=== PATIENT | male | born 1975 | race Caucasian/White ===

== ENCOUNTER 2017-01-27 11:22 | Emergency (ER) | payer OTHER ==
[2017-01-27 11:45] VITALS: BP 135/86
[2017-01-27] MEDS ORDERED: Sodium Chloride 0.9% 10 ML Syringe FLUSH PRN (11:55)
[2017-01-27] MEDS ORDERED: Alum Hydrox/Mag Hydrox/Simeth 30 ML, Lidocaine 2% 15 ML PO ONE ×2 (11:56)
--- NOTE | 2017-01-27 12:02 | EDM.PDOC ---
ED HPI GENERAL MEDICAL PROBLEM - General Chief Complaint: Chest Pain Stated Complaint: CHEST PAIN Time Seen by Provider: 01/27/17 11:56 Source of Information: Reports: Patient History Limitations: Reports: No Limitations - History of Present Illness INITIAL COMMENTS - FREE TEXT/NARRATIVE: Patient is a 41-year-old male who presents to the ED complaining of substernal chest discomfort. States it started this morning upon awakening. Described the pain as a pressure sensation rated a 3/10 with admission to the E.D. States he did become mildly short of breath with onset and broke out in a sweat as well. Pain is worsened with activity, palpation, movement of his left upper extremity. Patient states he's been under a lot of stress recently at work. Notes history of of hypertension and hypercholesterolemia to which he is medicated. In addition has a history of acid reflux and has taken omeprazole. Denies a recent exacerbation of his acid reflux. Denies pre-/syncopal episodes, nausea/vomiting, dizziness, pain to his back, pain to his left shoulder, left upper extremity, or any additional complaints. He is no history of previous episodes of such. He has no family history of first degree relative with heart disease.Patient does smoke 1-2 cigarettes daily. Duration: Constant, Waxing/Waning Location: Reports: Chest Quality: Reports: Ache, Pressure, Sharp Severity: Mild Improves with: Reports: Other (pushing on the chest) Worsens with: Reports: Other (ambulation) Context: Denies: Activity, Exercise, Lifting, Sick Contact Associated Symptoms: Reports: Chest Pain, Diaphoresis, Shortness of Breath ( with chest pain). 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 0.5 tab PO DAILY 01/27/17 [History] FLUoxetine [PROzac] 10 mg PO DAILY 01/27/17 [History] Lisinopril 10 mg PO DAILY 01/27/17 [History] Omeprazole 20 mg PO DAILY 01/27/17 [History] Past Medical History Cardiovascular History: Reports: High Cholesterol, Hypertension Psychiatric History: Reports: Anxiety - Infectious Disease History Infectious Disease History: Reports: Chicken Pox Social & Family History - Tobacco Use Smoking Status *Q: Current Every Day Smoker Years of Tobacco use: 15 Packs/Tins Daily: 0.4 - Caffeine Use Caffeine Use: Reports: Soda - Recreational Drug Use Recreational Drug Use: No ED ROS GENERAL - Review of Systems Review Of Systems: See Below Constitutional: Reports: No Symptoms Respiratory: Reports: Shortness of Breath. Denies: Cough, Sputum Cardiovascular: Reports: Chest Pain, Dyspnea on Exertion. Denies: Lightheadedness, Palpitations, Syncope GI/Abdominal: Denies: Abdominal Pain, Diarrhea, Nausea, Vomiting Musculoskeletal: Denies: Neck Pain, Shoulder Pain, Back Pain Neurological: Denies: Dizziness, Headache, Numbness, Syncope, Tingling, Difficulty Walking ED EXAM, GENERAL - Physical Exam Exam: See Below Exam Limited By: No Limitations General Appearance: Alert, WD/WN, No Apparent Distress Ears: Hearing Grossly Normal Nose: Normal Inspection Throat/Mouth: Normal Inspection, Normal Voice, No Airway Compromise Neck: Normal Inspection, Supple Respiratory/Chest: No Respiratory Distress, Lungs Clear, Normal Breath Sounds, No Accessory Muscle Use Cardiovascular: Normal Peripheral Pulses, Regular Rate, Rhythm, No Murmur Peripheral Pulses: 2+: Radial (L) GI/Abdominal: Normal Bowel Sounds, Soft, Non-Tender, No Organomegaly, No Distention Back Exam: Normal Inspection Extremities: Normal Inspection, Non-Tender, No Pedal Edema, Normal Capillary Refill Neurological: Alert, Oriented, CN II-XII Intact, Normal Cognition Psychiatric: Normal Affect, Normal Mood Skin Exam: Warm, Dry, Intact, Normal Color Course - Vital Signs Last Recorded V/S: Last Vital Signs Temp 98.7 F 01/27/17 11:42 Pulse 67 01/27/17 11:42 Resp 18 01/27/17 11:42 BP 135/86 01/27/17 11:42 Pulse Ox 97 01/27/17 11:42 - Orders/Labs/Meds Orders: Active Orders 24 hr Category Date Time Status EKG Documentation Completion [RC] STAT Care 01/27/17 11:51 Active Peripheral IV Care [RC] . DIRECTED Care 01/27/17 11:55 Active Peripheral IV Insertion Adult [OM.PC] Routine Oth 01/27/17 11:55 Ordered Labs: Laboratory Tests 01/27/17 01/27/17 01/27/17 Range/Units 11:40 11:40 11:40 WBC 8.16 (4.23-9.07) K/mm3 RBC 4.93 (4.63-6.08) M/mm3 Hgb 14.9 (13.7-17.5) gm/L Hct 42.3 (40.1-51.0) % MCV 85.8 (79.0-92.2) fl MCH 30.2 (25.7-32.2) pg MCHC 35.2 (32.2-35.5) g/dl RDW Std Deviation 40.5 (35.1-43.9) fL Plt Count 294 (163-337) K/mm3 MPV 9.8 (9.4-12.3) fl Neut % (Auto) 68.6 H (34.0-67.9) % Lymph % (Auto) 20.3 L (21.8-53.1) % [place] % (Auto) 8.7 (5.3-12.2) % Eos % (Auto) 1.8 (0.8-7.0) Baso % (Auto) 0.2 (0.1-1.2) % Neut # (Auto) 5.59 H (1.78-5.38) K/mm3 Lymph # (Auto) 1.66 (1.32-3.57) K/mm3 [place] # (Auto) 0.71 (0.30-0.82) K/mm3 Eos # (Auto) 0.15 (0.04-0.54) K/mm3 Baso # (Auto) 0.02 (0.01-0.08) K/mm3 PT 9.5 (8.0-13.0) SECONDS INR 0.88 APTT 28 (22-36) SECONDS Sodium 142 (136-145) mEq/L Potassium 3.6 (3.5-5.1) mEq/L Chloride 106 (98-107) mEq/L Carbon Dioxide 24 (21-32) mEq/L Anion Gap 15.6 H (5-15) BUN 10 (7-18) mg/dL Creatinine 1.2 (0.7-1.3) mg/dL Est Cr Clr Drug Dosing 73.10 mL/min Estimated GFR (MDRD) > 60 (>60) mL/min BUN/Creatinine Ratio 8.3 L (14-18) Glucose 110 H (74-106) mg/dL Calcium 9.0 (8.5-10.1) mg/dL Total Bilirubin 0.5 (0.2-1.0) mg/dL AST 27 (15-37) U/L ALT 57 (16-63) U/L Alkaline Phosphatase 77 (46-116) U/L Troponin I < 0.017 (0.00-0.056) ng/mL C-Reactive Protein < 0.2 (<1.0) mg/dL Total Protein 7.2 (6.4-8.2) g/dl Albumin 3.7 (3.4-5.0) g/dl Globulin 3.5 gm/dL Albumin/Globulin Ratio 1.1 (1-2) TSH 3rd Generation 0.992 (0.358-3.74) uIU/mL Meds: Medications Discontinued Medications Generic Name Dose Route Start Last Admin Trade Name Freq PRN Reason Stop Dose Admin Al Hydroxide/Mg Hydroxide 30 0 ml 01/27/17 11:56 01/27/17 12:14 ml/ Lidocaine HCl 15 ml PO 01/27/17 11:57 45 ml ONETIME ONE Administration Sodium Chloride 10 ml 01/27/17 11:55 01/27/17 12:14 Saline Flush FLUSH 10 ml ASDIRECTED PRN Administration Keep Vein Open - Re-Assessments/Exams Free Text/Narrative Re-Assessment/Exam: EKG reviewed sinus rhythm at a rate of 61, ID interval 152, QTC 4:15, the acute ST changes noted. For a peripheral IV with aspirin 324 mg p.o. and GI cocktail. Initial lab studies include CBC, chem 14, therapy, TSH, PT/INR, PTT, CXR, and Troponin. PERC Rule NEGATIVE. 01/27/17 13:12 Labs reviewed: CBC essentially normal, chem 14 essentially normal , troponin within normal limits, CRP within normal limits, and TSH within normal limits. 01/27/17 13:14 Per heart score patient is low risk for major cardiac event. Discussed with patient current lab results. He has opted to not have additional troponin obtained. He relates CP to stress with recent work situation. Pain is mild in nature and intermittent. Pain continues to worsen with palpation. CXR not ordered on initial evaluation. This has been ordered. 1353 Reviewed CXR. No acute abnormalities noted. Discharge instructions as documented. Departure - Departure Time of Disposition: 13:53 Disposition: Home, Self-Care 01 Condition: good Clinical Impression: Atypical chest pain Instructions: Nonspecific Chest Pain, [id number] Referrals: Lam Mcdonald MD [Primary Care Provider] - 1 Week Forms: ED Department Discharge Additional Instructions: CXR, EKG, and labs were essentially normal. Suggesting etiology of pain associated to atypical chest pain. Thus will have you take ibuprofen and tylenol in alternating patterns for pain. Refrain from activities that cause worsening pain. Followup with PCP in one week for reevaluation. Return to the E.D. for any new or worsening symptoms. - My Orders Last 24 Hours: My Active Orders 01/27/17 11:51 EKG Documentation Completion [RC] STAT 01/27/17 11:55 Peripheral IV Care [RC] . DIRECTED Peripheral IV Insertion Adult [OM.PC] Routine - Assessment/Plan Last 24 Hours: My Active Orders 01/27/17 11:51 EKG Documentation Completion [RC] STAT 01/27/17 11:55 Peripheral IV Care [RC] . DIRECTED Peripheral IV Insertion Adult [OM.PC] Routine
--- NOTE | 2017-01-27 15:15 | CR ---
Chest: Portable view of the chest was obtained. Comparison: No previous chest x-ray. Heart size and mediastinum are within normal limits for portable technique. Lungs are clear. Bony structures are grossly intact. Impression: 1. Nothing acute is identified on portable chest x-ray. Diagnostic code #1
== END 2017-01-27 14:15 | disposition home or self-care (01) ==
LOC: JD.ED 11:22
DX: R07.2 Precordial pain (principal); E78.00 Pure hypercholesterolemia, unspecified; I10 Essential (primary) hypertension; F41.9 Anxiety disorder, unspecified; F17.210 Nicotine dependence, cigarettes, uncomplicated; Z79.899 Other long term (current) drug therapy
CPT/HCPCS: 36415; 71010; 80053; 84443; 84484; 85025; 85610; 85730; 86140; 93005; 99285; A9270; J7050; 99284

== ENCOUNTER 2018-12-24 15:54 | Emergency (ER) | payer OTHER ==
[2018-12-24] MEDS ORDERED: Bupivacaine 0.5% 10 ML SDV ONE (16:04)
[2018-12-24] MEDS ORDERED: Bupivacaine 0.5% 10 ML SDV INJECT ONE (16:05)
[2018-12-24] MEDS ORDERED: Acetaminophen/oxyCODONE 325-5 MG Tab PO ONE (16:06)
[2018-12-24 16:09] VITALS: BP 173/115
[2018-12-24] MEDS ORDERED: Diphtheria,Pertussis(Acell),Tetanus Vaccine 0.5 ML Syringe IM ONE (17:27)
--- NOTE | 2018-12-24 17:27 | EDM.PDOC ---
ED HPI GENERAL MEDICAL PROBLEM - General Chief Complaint: Upper Extremity Injury/Pain Stated Complaint: L PINKY FINGER INJURY Time Seen by Provider: 12/24/18 16:05 Source of Information: Reports: Patient History Limitations: Reports: No Limitations - History of Present Illness INITIAL COMMENTS - FREE TEXT/NARRATIVE: 43 y/o old male presents to ER with cc left pinky pain. 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 He is right handed. He states the pain is worse if you touch or move his finger. Keeping his hand still makes it better, but he pain is severe. He is uncertain of his last tetanus shot. He appears to be in severe pain. He denies any neck or back pain. Onset: Today, Sudden Onset Date: 12/24/18 Onset Time: 15:30 Duration: Getting Worse Location: Reports: Upper Extremity, Left Quality: Reports: Stabbing, Throbbing Severity: Severe Improves with: Reports: None Worsens with: Reports: None Context: Reports: Trauma Associated Symptoms: Reports: No Other Symptoms Treatments TRANSITION NURSE: Reports: Acetaminophen Left Finger-Little Pain Score (Numeric/FACES): 9 - Related Data Allergies Allergy/AdvReac Type Severity Reaction Status Date / Time No Known Allergies Allergy Verified 12/24/18 16:07 Home Meds: Home Meds Cholesterol Med. 0.5 tab PO DAILY 01/27/17 [History] FLUoxetine [PROzac] 10 mg PO DAILY 01/27/17 [History] Lisinopril 10 mg PO DAILY 01/27/17 [History] Omeprazole 20 mg PO DAILY 01/27/17 [History] Cephalexin [Keflex] 500 mg PO TID 5 Days #15 capsule 12/24/18 [Rx] Hydrocodone/Acetaminophen [Cavendish 7.5-325 Tablet] 1 each PO Q6HR PRN 5 Days #15 tablet 12/24/18 [Rx] Past Medical History - Past Health History Medical/Surgical History: Denies Medical/Surgical History Cardiovascular History: Reports: High Cholesterol, Hypertension Psychiatric History: Reports: Anxiety - Infectious Disease History Infectious Disease History: Reports: Chicken Pox Social & Family History - Tobacco Use Smoking Status *Q: Current Every Day Smoker Years of Tobacco use: 20 Packs/Tins Daily: 0.1 - Caffeine Use Caffeine Use: Reports: Soda - Recreational Drug Use Recreational Drug Use: No Review of Systems - Review of Systems Review Of Systems: See Below Constitutional: Denies: Chills, Fever Eyes: Reports: No Symptoms Ears: Denies: Dizziness Nose: Reports: No Symptoms Mouth/Throat: Reports: No Symptoms Respiratory: Denies: Shortness of Breath Cardiovascular: Denies: Chest Pain GI/Abdominal: Reports: No Symptoms Genitourinary: Reports: No Symptoms Musculoskeletal: Reports: Hand Pain (left pinky pain). Denies: Neck Pain Skin: Reports: Other (left pinky laceration) Neurological: Denies: Confusion, Dizziness, Headache Psychiatric: Reports: No Symptoms ED EXAM, GENERAL - Physical Exam Exam: See Below General Appearance: Alert, WD/WN, No Apparent Distress Head: Atraumatic, Normocephalic Neck: Normal Inspection, Supple, Non-Tender, Full Range of Motion Respiratory/Chest: No Respiratory Distress, Lungs Clear, Normal Breath Sounds, No Accessory Muscle Use Cardiovascular: Normal Peripheral Pulses, Regular Rate, Rhythm, No Edema, No Gallop, No JVD, No Murmur, No Rub Extremities: Normal Range of Motion, No Pedal Edema, Other (left pinky decreased ROM due to pain, neurovascularly intact. ) Neurological: Alert, Oriented, CN II-XII Intact, Normal Cognition, Normal Reflexes Psychiatric: Normal Affect, Normal Mood Skin Exam: Warm, Dry, Normal Color, No Rash, Wound/Incision (left pinky) ED TRAUMA EXTREMITY PROCEDURES - Laceration/Wound Repair Left Upper Anterior Sides of Distal Digit - 5th (Baby) Lac/Wound Length In cm: 1.5 (irregular) Appearance: Subcutaneous, Irregular Distal NVT: Neuro & Vascular Intact, No Tendon Injury Anesthetic Type: Digital Local Anesthesia - Bupivicaine (Marcaine): 0.5% Plain Local Anesthetic Volume: 3cc Skin Prep: Chlorhexidine (Hibiciens), Providone-Iodine (Betadine) Exploration/Debridement/Repair: No Foreign Material Found Closed With: Sutures (5.0 nylon) Suture Size: other # of Sutures: 3 Suture Type: Prolene Suture Size: other (5.0) # of Sutures: 4 Tetanus Status Addressed: Yes Complications: No Progress/Comments: nail bed matrix secured with 5.0 nylon and sutured sides with Prolene 5.0. Patient tolerated procedure well. Course - Vital Signs Last Recorded V/S: Last Vital Signs Temp 97.7 F 12/24/18 16:00 Pulse 92 12/24/18 16:00 Resp 16 12/24/18 16:00 BP 173/115 H 12/24/18 16:00 Pulse Ox 97 12/24/18 16:00 - Orders/Labs/Meds Orders: Active Orders 24 hr Category Date Time Status Vaccines to be Administered [RC] PER UNIT ROUTINE Care 12/24/18 17:27 Ordered Fingers Fifth Digit Lt F4 [CR] Stat Exams 12/24/18 16:06 Taken Diphth,Pertuss(Acell),Tet Vac [Adacel] Med 12/24/18 17:27 Once 0.5 ml IM .ONCE ONE Meds: Medications Discontinued Medications Generic Name Dose Route Start Last Admin Trade Name Deepti PRN Reason Stop Dose Admin Bupivacaine HCl 10 ml 12/24/18 16:05 12/24/18 16:09 Sensorcaine-Mpf 0.5% INJECT 12/24/18 16:06 10 ml ONETIME ONE Administration Bupivacaine HCl Confirm 12/24/18 16:04 12/24/18 16:09 Sensorcaine-Mpf 0.5% Administered 12/24/18 16:05 Not Given Dose 10 ml .ROUTE .STK-MED ONE Oxycodone/Acetaminophen 2 tab 12/24/18 16:06 12/24/18 16:09 Percocet 325-5 Mg PO 12/24/18 16:07 2 tab ONETIME ONE Administration - Re-Assessments/Exams Free Text/Narrative Re-Assessment/Exam: 12/24/18 17:36 x-ray reveals left pinky tuff fracture. He received a digital block, Percocet and suture repair and his condition improved. I will discharge home with Cavendish for pain, and Keflex for outpatient antibiotic therapy. I instructed him no to drink, drive or operate machinery while taking Cavend[place] for pain. Instructed him to follow up with orthopedic. Referral was given for Dr. Kiran. Instructed on wound care and to follow up with his PCP in 7 -10 days to have sutures removed. Instructed to return to the ER for any new or acute worsening symptoms. Patient verbalized understanding and is comfortable with plan for discharge. He is stable at time of discharge. Departure - Departure Time of Disposition: 17:43 Disposition: Home, Self-Care 01 Clinical Impression: Fracture of metacarpal bone Qualifiers: Encounter type: initial encounter Metacarpal bone: fifth Fracture type: open Metacarpal location: shaft Fracture alignment: nondisplaced Laterality: left Qualified Code(s): S62.357B - Nondisplaced fracture of shaft of fifth metacarpal bone, left hand, initial encounter for open fracture - Discharge Information *PRESCRIPTION DRUG MONITORING PROGRAM REVIEWED*: Not Applicable *COPY OF PRESCRIPTION DRUG MONITORING REPORT IN PATIENT APOLINAR: Not Applicable Prescriptions: Hydrocodone/Acetaminophen [Cavendish 7.5-325 Tablet] 1 each PO Q6HR PRN 5 Days #15 tablet PRN Reason: finger pain Cephalexin [Keflex] 500 mg PO TID 5 Days #15 capsule Instructions: Metacarpal Fracture, [id number], Cast or Splint Care, Adult, [id number] Referrals: Lam Mcdonald MD [Primary Care Provider] - Forms: ED Department Discharge - My Orders Last 24 Hours: My Active Orders 12/24/18 16:06 Fingers Fifth Digit Lt F4 [CR] Stat 12/24/18 17:27 Vaccines to be Administered [RC] PER UNIT ROUTINE Diphth,Pertuss(Acell),Tet Vac [Adacel] 0.5 ml IM .ONCE ONE - Assessment/Plan Last 24 Hours: My Active Orders 12/24/18 16:06 Fingers Fifth Digit Lt F4 [CR] Stat 12/24/18 17:27 Vaccines to be Administered [RC] PER UNIT ROUTINE Diphth,Pertuss(Acell),Tet Vac [Adacel] 0.5 ml IM .ONCE ONE
--- NOTE | 2018-12-25 10:55 | CR ---
Left fifth finger: Four views of the left fifth finger were obtained. Comparison: No prior hand or finger exam. Soft tissue injury is noted distally. Small bony fragments are seen within the tuft of the distal phalanx compatible with comminuted fracture. No proximal bony abnormality is identified. Impression: 1. Comminuted fracture within the tuft of the distal fifth finger. 2. Adjacent soft tissue injury. Diagnostic code #3
== END 2018-12-24 18:00 | disposition home or self-care (01) ==
LOC: JD.ED 15:54
DX: S62.357B Nondisplaced fracture of shaft of fifth metacarpal bone, left hand, initial encounter for open fracture (principal); Z23 Encounter for immunization; F41.9 Anxiety disorder, unspecified; F17.210 Nicotine dependence, cigarettes, uncomplicated; I10 Essential (primary) hypertension; E78.00 Pure hypercholesterolemia, unspecified; Z79.899 Other long term (current) drug therapy; W20.8XXA Other cause of strike by thrown, projected or falling object, initial encounter; Y99.0 Civilian activity done for income or pay
CPT/HCPCS: 11730; 73140; 90471; 90700; 99283; A9270; J3490; 12001